=== PATIENT | female | born 2000 | race Caucasian/White ===

== ENCOUNTER → 2021-07-02 | Outpatient (CLI) | payer BC, MEDICAID ==
--- NOTE | 2021-07-02 12:33 | Diagnostic Imaging Report ---
INDICATION: Twin . TECHNIQUE: Multiple real-time grayscale images were obtained over the gravid uterus. COMPARISON: None FINDINGS: Twin live intrauterine is noted. Fetus A is to the maternal left in a cephalic presentation and fetus B is to the maternal right in a cephalic presentation. Fetus A heart rate is 158 bpm, and fetus B heart rate is somewhat elevated at 203 bpm. Amniotic fluid index for twin A is 6.1 cm amniotic fluid index twin B is 6.1 cm. Placenta is posterior and to the left for twin A and posterior to the right for twin B. Survey shows both twin A and twin B kidneys, bladder and stomach to be unremarkable. There is four-chamber heart as well as three-vessel cord and normal insertion. spines are unremarkable. brain evaluation is somewhat limited due to position. Biometrical measurements are as follows: Biparietal 8.69 cm, age 35 weeks 1 days. Head circumference 31.52 cm, age 35 weeks 3 days. Abdominal circumference 29.60 cm, age 33 weeks 5 days. Femur length 6.68 cm, age 34 weeks 3 days. Sonographic estimate age: 34 weeks 5 days. Sonographic estimated date of delivery: 08/08/2021. Estimated Weight: 2357 gm (+/- 344 gm). LMP percentile: 60%. heart rate: 158 beats per minute. number: 1 of 2. IMPRESSION: Twin live intrauterine approximately 34-35 weeks gestational age, as described. Amniotic fluid index is slightly low. No other significant abnormality is seen. Dictated by: Dictated on workstation # [id number]
== END ==
LOC: RAD 10:15
PROVIDERS: ATTEND Obstetrics & Gynecology
DX: O30.043 Twin pregnancy, dichorionic/diamniotic, third trimester (principal); Z3A.00 Weeks of gestation of pregnancy not specified
CPT/HCPCS: 76805; 76810

== ENCOUNTER 2021-07-21 12:25 | Inpatient (IN) | payer BC, MEDICAID ==
[~2021-07-21] VITALS: Ht 162.6 cm; Wt 84.9 kg
[2021-07-21] VITALS (29 sets, daily range): BP systolic 123–146; BP diastolic 67–92
--- OUTSIDE RECORDS SUMMARY | 2021-07-21 12:28 | XMS REPORT | Clinical Summary ---
Author Author [facility] Organization [facility] Address Unknown Phone Unavailable Care Team Providers Care Handkerchief Sample Clerk Name Role Phone Lucy Myranda [employer] OPERATOR PCP Allergies Comments Active Allergy Reactions Severity Noted Date Sulfa (Sulfonamide Hives Medium 06/18/2018 Antibiotics) Medications Not on file Active Problems Not on file Social History Date Tobacco Use Types Packs/Day Years Used Never Smoker Smokeless Tobacco: Never Used Comments Alcohol Use Standard Drinks/Week No 0 (1 standard drink = 0.6 o z pure alcohol) Sex Assigned at Date Recorded Not on file Last Filed Vital Signs Reading Time Taken Comments Vital Sign 154/96 06/18/2018 11:45 AM CIGAR HEAD HOLER Blood Pressure 94 06/18/2018 11:45 AM CIGAR HEAD HOLER Pulse 37.8 C (100.1 F) 06/18/2018 11:45 AM CIG[employer] HOLER Temperature 18 06/18/2018 11:45 AM CIGAR HEAD HOLER Respiratory Rate 96% 06/18/2018 11:45 AM CIGAR HEAD HOLER Oxygen Saturation - - Inhaled Oxygen Concentration 93.4 kg (206 lb) 06/18/2018 11:45 AM CIGAR HEAD HOLER Weight 162.6 cm (5' 4") 06/18/2018 11:45 AM CIGAR HEAD HOLER Height 35.36 06/18/2018 11:45 AM CIGAR HEAD HOLER Body Mass Index Plan of Treatment Not on file Results Not on filefrom Last 3 Months Insurance Type Payer Benefit Subscriber ID Effective Phone Address Plan / Dates Group BLUE [employer] BLUE [facility] BLUE [id number] 2017-P [address] [place] [address] [id number] Thi Cruz Personal/F Self 2000 [address] (Home) [place] [address] Thi Cruz Personal/F Self 2000 [address] (Home) [place] [address] Advance Directives For more information, please contact: [phone] Patient Warp Tester Explanation Type Date Recorded Health Care Directive Care Teams Start Date End Date Handkerchief Sample Clerk Relationship Specialty 06/18/18 Myranda Ayala, WENDY PCP - General Nurse [address] [place] [address]
[2021-07-21] MEDS ORDERED: AMPICILLIN FOR IV USE 2,000 MG in NS (IVPB) 50 ML IV SCH (12:58)
[2021-07-21] MEDS ORDERED: D5 LR IV SOLUTION 1,000 ML IV SCH (13:00)
[2021-07-21] MEDS ORDERED: D5 LR IV SOLUTION 1,000 ML IV ONE (13:04)
[2021-07-21] MEDS ORDERED: MINERAL OIL CONCENTRATE 99.9% 15 ML UDC TOP PRN (13:15)
[2021-07-21 13:30] LABS: BASOPHILS % (AUTO) 0 % (0-10); EOSINOPHILS % (AUTO) 0 % (0-10); HEMATOCRIT 26 % (35-52); HEMOGLOBIN 7.6 g/dL (11.5-16.0); LYMPHOCYTES # (AUTO) 1.6 10^3/uL (1.0-4.0); LYMPHOCYTES % (AUTO) 13 % (12-44); MEAN CORPUSCULAR HEMOGLOBIN 22 pg (25-34); MEAN CORPUSCULAR HGB CONC 30 g/dL (32-36); MEAN CORPUSCULAR VOLUME 73 fL (80-99); MEAN PLATELET VOLUME 10.2 fL (9.0-12.2); MONOCYTES # (AUTO) 0.6 10^3/uL (0.0-1.0); MONOCYTES % (AUTO) 5 % (0-12); NEUTROPHILS # (AUTO) 9.8 10^3/uL (1.8-7.8); NEUTROPHILS % (AUTO) 81 % (42-75); PLATELET COUNT 367 10^3/uL (130-400)
[2021-07-21] MEDS ORDERED: PREN-51 PO (13:36)
[2021-07-21] MEDS ORDERED: CATHETER FLUSH 10 ML SYR IV SCH ×2 (14:00→22:00)
--- NOTE | 2021-07-21 14:01 | History & Physical-OB ---
OB - Chief Complaint & HPI Date/Time Date of Admission: Date of Admission: Jul 21, 2021 at 12:25 Date seen by a Provider: Jul 21, 2021 Time Seen by a Provider: 11:30 Chief Complaint/History OB-Reason for Admission/Chief: Onset of Labor Expected Date of Delivery: Aug 16, 2021 Gestational Age in Weeks: 36 Gestational Age in Days: 2 Allergies and Home Medications Allergies Coded Allergies: Sulfa (Sulfonamide Antibiotics) (Verified Allergy, Unknown, Rash, 07/21/21) sulfamethoxazole (Verified Allergy, Unknown, Rash, 07/21/21) trimethoprim (Verified Allergy, Unknown, Rash, 07/21/21) Patient Home Medication List Vit #76/Iron,Carb/FA (Prenatabs Rx Tablet) 1 Each Tablet, 1 EACH PO, (Reported) Entered as Reported by: DARLENE DUMONT on 07/21/21 [id number] Last Action: New Order OB - History Immunizations Influenza Vaccine Up-to-Date: Yes; Up-to-Date Hepatitis A: Yes Hepatitis B: Yes OB - Admission Exam Labs Laboratory Tests Test 07/21/21 13:15 Range/Units White Blood Count 12.0 H 4.3-11.0 10^3/uL Red Blood Count 3.52 L 3.80-5.11 10^6/uL Hemoglobin 7.6 L 11.5-16.0 g/dL Hematocrit 26 L 35-52 % Mean Corpuscular Volume 73 L 80-99 fL Mean Corpuscular Hemoglobin 22 L 25-34 pg Mean Corpuscular Hemoglobin Concent 30 L 32-36 g/dL Red Cell Distribution Width 17.5 H 10.0-14.5 % Platelet Count 367 130-400 10^3/uL Mean Platelet Volume 10.2 9.0-12.2 fL Immature Granulocyte % (Auto) 1 % Neutrophils (%) (Auto) 81 H 42-75 % Lymphocytes (%) (Auto) 13 12-44 % Monocytes (%) (Auto) 5 0-12 % Eosinophils (%) (Auto) 0 0-10 % Basophils (%) (Auto) 0 0-10 % Neutrophils # (Auto) 9.8 H 1.8-7.8 10^3/uL Lymphocytes # (Auto) 1.6 1.0-4.0 10^3/uL Monocytes # (Auto) 0.6 0.0-1.0 10^3/uL Eosinophils # (Auto) 0.0 0.0-0.3 10^3/uL Basophils # (Auto) 0.0 0.0-0.1 10^3/uL Immature Granulocyte # (Auto) 0.1 0.0-0.1 10^3/uL VAISHNAVI COWART DO Jul 21, 2021 14:01
[2021-07-21] MEDS ORDERED: TRANEXAMIC ACID 100 MG/ML 10 ML INJECTION IV ONE (14:30)
[2021-07-21] MEDS ORDERED: NS IV 500 ML 500 ML IV SCH (14:30)
[2021-07-21] MEDS ORDERED: AMPICILLIN FOR IV USE 1,000 MG in NS (IVPB) 50 ML IV SCH (17:00)
[2021-07-21] MEDS ORDERED: fentaNYL 2 mcg/ml BUPIVA 0.125 100 ML ONE (17:38)
[2021-07-21] MEDS ORDERED: ONDANSETRON 4 MG/2 ML (SDV) Z0FRAN IV PRN (18:30)
[2021-07-21] MEDS ORDERED: LACTATED RINGERS 1,000 ML IV SCH (18:30)
[2021-07-21] MEDS ORDERED: EPIDURAL (fentaNYL 2 MCG/ML BUPIVA 0.125%)100 ML BAG EPI SCH (18:30)
[2021-07-21] MEDS ORDERED: NALOXONE 0.4 MG/ML 1 ML (NARCAN) VIAL IV PRN ×3 (18:30→19:15)
[2021-07-21] MEDS ORDERED: diphenhydrAMINE 50 MG/ML INJ (BENADRYL) IV PRN (18:30)
[2021-07-21] MEDS ORDERED: METOCLOPRAMIDE INJ 10 MG/2 ML (REGLAN) IV PRN (18:30)
[2021-07-21] MEDS ORDERED: OXYTOCIN PRE-MIX DRIP 500 ML IV ONE ×2 (19:07→19:08)
[2021-07-21] MEDS ORDERED: TRANEXAMIC ACID 100 MG/ML 10 ML INJECTION ONE (19:13)
[2021-07-21] MEDS ORDERED: WITCH HAZEL(TUCKS) 40 EA JAR TOP PRN (19:15)
[2021-07-21] MEDS ORDERED: TRANEXAMIC ACID INJECTION 1,000 MG in NS (IVPB) 50 ML IV ONE (19:15)
[2021-07-21] MEDS ORDERED: TETANUS,DIPTH,PERTUSS P/F (BOOSTRIX) 0.5 ML VIAL IM ONE (19:15)
[2021-07-21] MEDS ORDERED: MEASLES,MUMPS,RUBELLA 1 EA INJ SQ ONE (19:15)
[2021-07-21] MEDS ORDERED: BENZOCAINE/MENTHOL (DERMOPLAST) 56 ML CAN TP PRN (19:15)
[2021-07-21] MEDS: OXYTOCIN PRE-MIX DRIP 500 ML IV SCH ×2 (19:59→21:07)
--- NOTE | 2021-07-21 20:19 | OB Labor & Delivery Record ---
Vag Delivery Note Vag Delivery Note Date of Delivery: 07/21/21 Preoperative Diagnosis: Thi Cruz is a 21 /Para 2 /1 ,Gestational Age 36 2/7 weeks, diamniotic, dichorionic twins, GBS + hyperthyroidism, iron def anemia Postoperative Diagnosis: Same Surgeon: VAISHNAVI COWART Anesthesia: epidural Delivery Type: spontaneous vaginal twin delivery Findings: Viable female Apgars 9/9, weight 6# viable female infant B, Apgars 9/9, 5#11 ounces Lacerations: none Intact placenta x 2 with 3 vessel cord. No nuchal cord, body cord or shoulder dystocia Tranexamic acid 1 gram given before delivery of placenta Estimated Blood Loss: 300 ml Complications: None Condition: Stable Description of Procedure: The patient is a 21 year old female who presented [to the clinic today for routine 36 week visit. She had NST and noted to have uterine irritability. Was complaining of increased white vaginal delivery, but not leakage of fluid. Cervical exam was done and she was noted to be 6 cm dilated. She was admitted and informed consent was obtained. Her labor course was remarkable for ampicillin for GBS prophylaxis. She progressed without augmentation. After the second dose of ampicillin was given, she was 7-8 cm dilated and AROM was accomplished on the first twin with clear fluid. She progressed to complete dilatation and began to push. She was then set up for delivery. Infant A's head was delivered atraumatically in the JEYSON position. The shoulders and remainder of the infant's body were then delivered without difficulty. Upon delivery, the head was held below the level of the perineum and the mouth and nares were bulb suctioned. The cord was doubly clamped and cut and the infant was handed off to the pediatric staff. a bedside ultrasound was done and the second twin was noted to be cephalic. AROM was accomplished with clear fluid. Infant B's head was delivered atraumatically in the ROBERT position. The shoulders and remainder of the 's body were then delivered without difficulty. Upon delivery, the head was held below the level of the perineum and the mouth and nares were bulb suctioned. The cord was doubly clamped and cut and the infant was handed off to the pediatric staff. Intact placenta x 2 with 3-vessel cord x2 delivered spontaneously via Bambi and there was found to be minimal bleeding.~ Vigorous fundal massage was performed and the fundus was found to be firm. IV oxytocin was given. Examination of the vagina and perineum revealed no laceration. Following the delivery, sponge, instrument and needle counts were correct. Mom and babies were both in stable condition in the labor suite. Vitals - Labs Vital Signs - I&O Vital Signs Date Time Temp Pulse Resp B/P (MAP) Pulse Ox O2 Delivery O2 Flow Rate FiO2 07/21/21 18:58 101 18 131/75 (93) 98 Room Air 07/21/21 18:54 108 18 132/71 (91) 98 Room Air 07/21/21 18:47 37.1 124 18 142/79 (100) 100 Room Air 07/21/21 18:44 103 18 132/81 (98) 100 Room Air 07/21/21 18:41 121 18 141/72 (95) 100 Room Air 07/21/21 18:38 106 18 143/67 (92) 100 Room Air 07/21/21 18:35 110 18 139/70 (93) 98 Room Air 07/21/21 18:32 104 18 144/81 (102) 98 Room Air 07/21/21 18:29 113 18 140/81 (100) 99 Room Air 07/21/21 18:26 129 18 139/82 (101) 100 Room Air 07/21/21 18:23 132 18 138/86 (103) 100 Room Air 07/21/21 18:20 122 18 136/84 (101) 98 Room Air 07/21/21 18:18 113 18 134/72 (92) 98 Room Air 07/21/21 18:12 118 18 133/80 (97) 100 Room Air 07/21/21 16:00 106 18 132/80 (97) Room Air 07/21/21 13:35 104 18 123/75 (91) 07/21/21 12:55 111 20 Room Air 07/21/21 12:40 37.0 114 18 99 Room Air Labs Laboratory Tests 07/21/21 13:15: White Blood Count 12.0H, Red Blood Count 3.52L, Hemoglobin 7.6L, Hematocrit 26L, Mean Corpuscular Volume 73L, Mean Corpuscular Hemoglobin 22L, Mean Corpuscular Hemoglobin Concent 30L, Red Cell Distribution Width 17.5H, Platelet Count 367, Mean Platelet Volume 10.2, Immature Granulocyte % (Auto) 1, Neutrophils (%) (Auto) 81H, Lymphocytes (%) (Auto) 13, Monocytes (%) (Auto) 5, Eosinophils (%) (Auto) 0, Basophils (%) (Auto) 0, Neutrophils # (Auto) 9.8H, Lymphocytes # (Auto) 1.6, Monocytes # (Auto) 0.6, Eosinophils # (Auto) 0.0, Basophils # (Auto) 0.0, Immature Granulocyte # (Auto) 0.1 VAISHNAVI COWART DO Jul 21, 2021 20:19
[2021-07-21] MEDS: ACETAMINOPHEN 500 MG TAB (TYLENOL) PO SCH (22:10)
[2021-07-22] MEDS: DOCUSATE SODIUM 100 MG (COLACE) CAP PO SCH ×3 (00:05→20:52)
[2021-07-22] MEDS: IBUPROFEN 600 MG (MOTRIN) TAB PO SCH ×4 (00:05→18:23)
[2021-07-22 00:10] VITALS: BP 147/79
[2021-07-22 03:59] VITALS: BP 136/90
[2021-07-22] MEDS: ACETAMINOPHEN 500 MG TAB (TYLENOL) PO SCH ×2 (06:01→14:27)
[2021-07-22 07:07] LABS: BASOPHILS # (AUTO) 0.1 10^3/uL (0.0-0.1); BASOPHILS % (AUTO) 0 % (0-10); EOSINOPHILS % (AUTO) 0 % (0-10); HEMATOCRIT 23 % (35-52); LYMPHOCYTES # (AUTO) 2.5 10^3/uL (1.0-4.0); LYMPHOCYTES % (AUTO) 19 % (12-44); MEAN CORPUSCULAR HEMOGLOBIN 22 pg (25-34); MEAN CORPUSCULAR HGB CONC 29 g/dL (32-36); MEAN CORPUSCULAR VOLUME 74 fL (80-99); MEAN PLATELET VOLUME 10.3 fL (9.0-12.2); MONOCYTES # (AUTO) 0.8 10^3/uL (0.0-1.0); MONOCYTES % (AUTO) 6 % (0-12); NEUTROPHILS # (AUTO) 9.6 10^3/uL (1.8-7.8); NEUTROPHILS % (AUTO) 73 % (42-75); PLATELET COUNT 283 10^3/uL (130-400); WHITE BLOOD COUNT 13.1 10^3/uL (4.3-11.0)
[2021-07-22 07:12] LABS: HEMOGLOBIN 6.8 g/dL (11.5-16.0)
--- NOTE | 2021-07-22 07:47 | Postpartum Progress Note ---
Note Note Day # 1 s/p twins at 36 weeks, GBS +, antepartum severe anemia Subjective: Patient is without complaints. Ambulating, voiding. Tolerating a regular diet without nausea or vomiting. Normal lochia. Pain is well controlled with oral pain medications. bottle feeding. Objective: 07/21/21 07/21/21 07/21/21 07/21/21 19:50 20:15 20:30 20:45 Pulse 123 99 93 103 B/P (MAP) 137/86 (103) 130/79 (96) 136/75 (95) 133/72 (92) 07/21/21 07/21/21 07/21/21 07/21/21 21:00 21:15 21:30 21:45 Pulse 90 94 86 80 B/P (MAP) 133/92 (106) 137/84 (101) 127/89 (102) 131/82 (98) 07/21/21 07/21/21 07/22/21 07/22/21 22:00 22:15 00:10 03:59 Temp 37.0 36.7 Pulse 85 81 78 72 Resp 18 B/P (MAP) 135/84 (101) 133/80 (97) 147/79 (101) 136/90 (105) Pulse Ox 98 07/22/21 00:00 Intake Total 114.8 ml Output Total 375 ml Balance -260.2 ml Laboratory Tests Test 07/21/21 13:15 07/22/21 06:04 Range/Units White Blood Count 12.0 H 13.1 H 4.3-11.0 10^3/uL Red Blood Count 3.52 L 3.15 L 3.80-5.11 10^6/uL Hemoglobin 7.6 L 6.8 *L 11.5-16.0 g/dL Hematocrit 26 L 23 L 35-52 % Mean Corpuscular Volume 73 L 74 L 80-99 fL Mean Corpuscular Hemoglobin 22 L 22 L 25-34 pg Mean Corpuscular Hemoglobin Concent 30 L 29 L 32-36 g/dL Red Cell Distribution Width 17.5 H 17.7 H 10.0-14.5 % Platelet Count 367 283 130-400 10^3/uL Mean Platelet Volume 10.2 10.3 9.0-12.2 fL Immature Granulocyte % (Auto) 1 1 % Neutrophils (%) (Auto) 81 H 73 42-75 % Lymphocytes (%) (Auto) 13 19 12-44 % Monocytes (%) (Auto) 5 6 0-12 % Eosinophils (%) (Auto) 0 0 0-10 % Basophils (%) (Auto) 0 0 0-10 % Neutrophils # (Auto) 9.8 H 9.6 H 1.8-7.8 10^3/uL Lymphocytes # (Auto) 1.6 2.5 1.0-4.0 10^3/uL Monocytes # (Auto) 0.6 0.8 0.0-1.0 10^3/uL Eosinophils # (Auto) 0.0 0.0 0.0-0.3 10^3/uL Basophils # (Auto) 0.0 0.1 0.0-0.1 10^3/uL Immature Granulocyte # (Auto) 0.1 0.2 H 0.0-0.1 10^3/uL Physical Exam: General - Alert and oriented, no apparent distress Abdomen - Soft, appropriately tender to palpation, non-distended, fundus firm at umbilicus Extremities - no edema, negative Adriana's bilaterally Assessment: 1. post- day # 1, status post twin vaginal delivery. Recovering well, hemodynamically stable Plan: Routine care. Encourage ambulation. Ferrous sulfate supplementation. Consider transfusion or iron infusion Plan for discharge possible tomorrow Vitals - Labs Vital Signs - I&O Vital Signs Date Time Temp Pulse Resp B/P (MAP) Pulse Ox O2 Delivery O2 Flow Rate FiO2 07/22/21 03:59 36.7 72 18 136/90 (105) 98 07/22/21 00:10 37.0 78 147/79 (101) 07/21/21 22:15 81 133/80 (97) 07/21/21 22:00 85 135/84 (101) 07/21/21 21:45 80 131/82 (98) 07/21/21 21:30 86 127/89 (102) 07/21/21 21:15 94 137/84 (101) 07/21/21 21:00 90 133/92 (106) 07/21/21 20:45 103 133/72 (92) 07/21/21 20:30 93 136/75 (95) 07/21/21 20:15 99 130/79 (96) 07/21/21 19:50 123 137/86 (103) 07/21/21 19:20 107 140/78 (98) 07/21/21 19:00 150 18 135/77 (96) Room Air 07/21/21 18:58 101 18 131/75 (93) 98 Room Air 07/21/21 18:54 108 18 132/71 (91) 98 Room Air 07/21/21 18:47 37.1 124 18 142/79 (100) 100 Room Air 07/21/21 18:44 103 18 132/81 (98) 100 Room Air 07/21/21 18:41 121 18 141/72 (95) 100 Room Air 07/21/21 18:38 106 18 143/67 (92) 100 Room Air 07/21/21 18:35 110 18 139/70 (93) 98 Room Air 07/21/21 18:32 104 18 144/81 (102) 98 Room Air 07/21/21 18:29 113 18 140/81 (100) 99 Room Air 07/21/21 18:26 129 18 139/82 (101) 100 Room Air 07/21/21 18:23 132 18 138/86 (103) 100 Room Air 07/21/21 18:20 122 18 136/84 (101) 98 Room Air 07/21/21 18:18 113 18 134/72 (92) 98 Room Air 07/21/21 18:12 118 18 133/80 (97) 100 Room Air 07/21/21 16:00 106 18 132/80 (97) Room Air 07/21/21 13:35 104 18 123/75 (91) 07/21/21 12:55 111 20 Room Air 07/21/21 12:40 37.0 114 18 99 Room Air I & O 07/22/21 07:00 Intake Total 114.8 ml Output Total 375 ml Balance -260.2 ml Labs Laboratory Tests 07/21/21 13:15: White Blood Count 12.0H, Red Blood Count 3.52L, Hemoglobin 7.6L, Hematocrit 26L, Mean Corpuscular Volume 73L, Mean Corpuscular Hemoglobin 22L, Mean Corpuscular Hemoglobin Concent 30L, Red Cell Distribution Width 17.5H, Platelet Count 367, Mean Platelet Volume 10.2, Immature Granulocyte % (Auto) 1, Neutrophils (%) (Auto) 81H, Lymphocytes (%) (Auto) 13, Monocytes (%) (Auto) 5, Eosinophils (%) (Auto) 0, Basophils (%) (Auto) 0, Neutrophils # (Auto) 9.8H, Lymphocytes # (Auto) 1.6, Monocytes # (Auto) 0.6, Eosinophils # (Auto) 0.0, Basophils # (Auto) 0.0, Immature Granulocyte # (Auto) 0.1 07/22/21 06:04: White Blood Count 13.1H, Red Blood Count 3.15L, Hemoglobin 6.8*L, Hematocrit 23L , Mean Corpuscular Volume 74L, Mean Corpuscular Hemoglobin 22L, Mean Corpuscular Hemoglobin Concent 29L, Red Cell Distribution Width 17.7H, Platelet Count 283, Mean Platelet Volume 10.3, Immature Granulocyte % (Auto) 1, Neutrophils (%) (Auto) 73, Lymphocytes (%) (Auto) 19, Monocytes (%) (Auto) 6, Eosinophils (%) (Auto) 0, Basophils (%) (Auto) 0, Neutrophils # (Auto) 9.6H, Lymphocytes # (Auto) 2.5, Monocytes # (Auto) 0.8, Eosinophils # (Auto) 0.0, Basophils # (Auto) 0.1, Immature Granulocyte # (Auto) 0.2H VAISHNAVI COWART DO Jul 22, 2021 07:47
[2021-07-22 07:54] LABS: FREE T4 (FREE THYROXINE) 0.68 NG/DL (0.70-1.48)
[2021-07-22 08:30] VITALS: BP 126/83
[2021-07-22] MEDS: FERROUS SULF 325 MG (IRON) TAB PO SCH (08:44)
[2021-07-22] MEDS: PRENATAL VITAMIN 1 EA TAB PO SCH (08:44)
--- NOTE | 2021-07-22 09:05 | Anesthesia-Regional Post-Op ---
Regional Patient Condition Mental Status: Alert, Oriented x3 Circulation: Same as Pre-Op Headache: Absent Sensation: Full Recovery Motor Block: Absent Post Op Complications Complications None Follow Up Care/Instructions Patient Instructions None needed. Anesthesia/Patient Condition Patient is doing well, no complaints, stable vital signs, no apparent adverse anesthesia problems. No complications reported per nursing. D/C home per [facility] [place] Criteria: KEVIN Biggs CRNA Jul 22, 2021 09:05
[2021-07-22] MEDS ORDERED: IRON SUCROSE 200 MG/10 ML (VENOFER) VIAL IV NR (12:00)
[2021-07-22 12:20] VITALS: BP 128/80
[2021-07-22 17:00] VITALS: BP 124/82
[2021-07-22] MEDS ORDERED: FERR325T24 PO (17:27)
[2021-07-22] MEDS ORDERED: DOCU100C37 PO (17:27)
[2021-07-22] MEDS ORDERED: ACET-93 PO (17:27)
[2021-07-22] MEDS ORDERED: IBUP-844 PO (17:27)
--- NOTE | 2021-07-22 17:28 | Discharge Inst-Women's Service ---
Discharge Inst-Women's Serv Depart Medication/Instructions New, Converted or Re-Newed RX: Transmitted to Pharmacy Final Diagnosis twin /di di iron deficient anemia labor GBS + 36 week gestation Problems Reviewed?: Yes Consults/Follow Up Additional Follow Up: Yes (6 week for post exam) Activity Activity: Activity as Tolerated Driving Instructions: You May Drive NO SMOKING: NO SMOKING Nothing Inside Vagina: No Douching, No [place], No Tampons Diet Discharge Diet: No Restrictions Symptoms to Report to : Swelling Increased, Bleeding Excessive, Pain Increased, Fever Over 101 Degrees F, Vaginal Bleeding Increase, Cramps in Feet or Legs, Vaginal Discharge Foul For Any Problems or Questions: Contact Your Physician VAISHNAVI COWART DO Jul 22, 2021 17:28
[2021-07-23] VITALS: BP 133/88
[2021-07-23] MEDS: IBUPROFEN 600 MG (MOTRIN) TAB PO SCH ×3 (00:04→11:41)
[2021-07-23] MEDS: ACETAMINOPHEN 500 MG TAB (TYLENOL) PO SCH ×2 (00:05→08:25)
[2021-07-23 06:00] VITALS: BP 127/82
--- NOTE | 2021-07-23 07:51 | Postpartum Progress Note ---
Note Note Day #2 Subjective: Patient is without complaints. Ambulating, voiding. Tolerating a regular diet without nausea or vomiting. Normal lochia. Pain is well controlled with oral pain medications. Bottlefeeding. Denies lightheadedness or dizziness. Objective: VS - Last 72 Hours, by Label 07/21/21 07/21/21 07/21/21 07/21/21 12:40 12:55 13:35 16:00 Temp 37.0 Pulse 114 111 104 106 Resp 18 20 18 18 B/P (MAP) 123/75 (91) 132/80 (97) Pulse Ox 99 O2 Delivery Room Air Room Air Room Air 07/21/21 07/21/21 07/21/21 07/21/21 18:12 18:18 18:20 18:23 Pulse 118 113 122 132 Resp 18 18 18 18 B/P (MAP) 133/80 (97) 134/72 (92) 136/84 (101) 138/86 (103) Pulse Ox 100 98 98 100 O2 Delivery Room Air Room Air Room Air Room Air 07/21/21 07/21/21 07/21/21 07/21/21 18:26 18:29 18:32 18:35 Pulse 129 113 104 110 Resp 18 18 18 18 B/P (MAP) 139/82 (101) 140/81 (100) 144/81 (102) 139/70 (93) Pulse Ox 100 99 98 98 O2 Delivery Room Air Room Air Room Air Room Air 07/21/21 07/21/21 07/21/21 07/21/21 18:38 18:41 18:44 18:47 Temp 37.1 Pulse 106 121 103 124 Resp 18 18 18 18 B/P (MAP) 143/67 (92) 141/72 (95) 132/81 (98) 142/79 (100) Pulse Ox 100 100 100 100 O2 Delivery Room Air Room Air Room Air Room Air 07/21/21 07/21/21 07/21/21 07/21/21 18:54 18:58 19:00 19:20 Pulse 108 101 150 107 Resp 18 18 18 B/P (MAP) 132/71 (91) 131/75 (93) 135/77 (96) 140/78 (98) Pulse Ox 98 98 O2 Delivery Room Air Room Air Room Air 2/21/22 07/21/21 07/21/21 07/21/21 19:50 20:15 20:30 20:45 Pulse 123 99 93 103 B/P (MAP) 137/86 (103) 130/79 (96) 136/75 (95) 133/72 (92) 07/21/21 07/21/21 07/21/21 07/21/21 21:00 21:15 21:30 21:45 Pulse 90 94 86 80 B/P (MAP) 133/92 (106) 137/84 (101) 127/89 (102) 131/82 (98) 07/21/21 07/21/21 07/22/21 07/22/21 22:00 22:15 00:10 03:59 Temp 37.0 36.7 Pulse 85 81 78 72 Resp 18 B/P (MAP) 135/84 (101) 133/80 (97) 147/79 (101) 136/90 (105) Pulse Ox 98 07/22/21 07/22/21 07/22/21 07/23/21 08:30 12:20 17:00 00:00 Temp 36.3 36.5 36.4 36.6 Pulse 73 78 80 78 Resp 18 18 18 18 B/P (MAP) 126/83 (97) 128/80 (96) 124/82 (96) 133/88 (103) Pulse Ox 98 97 98 97 O2 Delivery Room Air Room Air Room Air Room Air 07/23/21 06:00 Temp 36.3 Pulse 75 Resp 18 B/P (MAP) 127/82 (97) Pulse Ox 97 O2 Delivery Room Air Physical Exam: General - Alert and oriented, no apparent distress Abdomen - Soft, appropriately tender to palpation, non-distended, fundus firm at umbilicus Extremities - no edema, negative Adriana's bilaterally Assessment: Post- day # 2, status post vaginal delivery of twin gestation (VFI x2). Antepartum course complicated by twin gestation, severe chronic anemia and GBS+ status. Recovering well, hemodynamically stable. Plan: Routine care. Acute on chronic blood loss anemia: preop hgb of 7.6 --> postop hgb of 6.8. Vitals are stable. FeSO4 and colace BID. Feeding: Encourage bottle-feeding. DVT ppx: SCDs in place. Encourage ambulation. Contraception: Will send Sprintec to pharmacy. Instructions reviewed. Dispo: Discharge today with appt in 6 weeks. Vitals - Labs Vital Signs - I&O Vital Signs Date Time Temp Pulse Resp B/P (MAP) Pulse Ox O2 Delivery O2 Flow Rate FiO2 07/23/21 06:00 36.3 75 18 127/82 (97) 97 Room Air 07/23/21 00:00 36.6 78 18 133/88 (103) 97 Room Air 07/22/21 17:00 36.4 80 18 124/82 (96) 98 Room Air 07/22/21 12:20 36.5 78 18 128/80 (96) 97 Room Air 07/22/21 08:30 36.3 73 18 126/83 (97) 98 Room Air RANJANA CRABTREE MD Jul 23, 2021 07:51
[2021-07-23] MEDS ORDERED: NORG1TAB14 PO (07:54)
[2021-07-23] MEDS: FERROUS SULF 325 MG (IRON) TAB PO SCH (08:24)
[2021-07-23] MEDS: PRENATAL VITAMIN 1 EA TAB PO SCH (08:24)
[2021-07-23] MEDS: DOCUSATE SODIUM 100 MG (COLACE) CAP PO SCH (08:24)
[2021-07-23 09:00] VITALS: BP 120/81
[2021-07-23 13:50] VITALS: BP 128/80
[2021-07-23 14:35] VITALS: BP 128/80
== END 2021-07-23 14:35 | disposition home or self-care (01) | DRG 805 ==
LOC: LDRP 12:25
PROVIDERS: ADMIT Obstetrics & Gynecology; ATTEND Obstetrics & Gynecology
PROC: 10E0XZZ Delivery of Products of Conception, External Approach (ICD-10-PCS; principal; 2021-07-21)
DX: O30.043 Twin pregnancy, dichorionic/diamniotic, third trimester (principal); O60.14X0 Preterm labor third trimester with preterm delivery third trimester, not applicable or unspecified; Z37.2 Twins, both liveborn; D62 Acute posthemorrhagic anemia; O99.824 Streptococcus B carrier state complicating childbirth; O99.284 Endocrine, nutritional and metabolic diseases complicating childbirth; E05.90 Thyrotoxicosis, unspecified without thyrotoxic crisis or storm; Z3A.36 36 weeks gestation of pregnancy; O99.013 Anemia complicating pregnancy, third trimester; D50.9 Iron deficiency anemia, unspecified; O90.81 Anemia of the puerperium; Z79.899 Other long term (current) drug therapy
CPT/HCPCS: 36415; 84439; 84443; 85025; 86850; 86900; 86901; 86920